=== PATIENT | female | born 1985 | race Caucasian/White ===

== ENCOUNTER 2019-11-03 10:55 | Emergency (ER) | payer OTHER, SELFPAY ==
[2019-11-03 11:00] VITALS: BP 121/84; PULSE 110; RESP 16; TEMP 36.7; O2SAT 97
--- NOTE | 2019-11-03 11:08 | ED.EAR ---
HPI - Ear Problem General Chief complaint: Ear Stated complaint: EAR PRESSURE/POPPING NOISES/HEARING LOSS Time Seen by Provider: 11/03/19 11:00 Source: patient and RN notes reviewed Mode of arrival: ambulatory Limitations: no limitations History of Present Illness HPI Narrative: 34-year-old female presents with concern for bilateral ear pain with clicking and popping. Reports symptoms started as cold symptoms. Cold symptoms have resolved however ear pain remains. Reports history of ear infections. Reports she is trying to conceive and would prefer medications that would be safe for . MD Complaint: ear pain Location: bilateral Related Data Home Medications Medication Instructions Recorded Confirmed escitalopram oxalate [Lexapro] 20 mg PO DAILY 09/09/19 09/09/19 ranitidine HCl 150 mg PO DAILY 09/09/19 09/09/19 Allergies Allergy/AdvReac Type Severity Reaction Status Date / Time sulfamethoxazole Allergy Unknown RED FACE, Verified 09/09/19 17:13 FELT FLUSHED trimethoprim Allergy Unknown RED FACE, Verified 09/09/19 17:13 FELT FLUSHED Review of Systems Review of Systems: Narrative: CONSTITUTIONAL: Denies malaise, chills, sweats, or fever. EYES: Denies visual changes, redness, or discharge. ENT: Denies congestion, sinus pain, or sore throat. Reports rhinorrhea, bilateral ear pain CARDIOVASCULAR: Denies chest pain, palpitations, or edema. RESPIRATORY: Denies cough or dyspnea. SKIN: Denies rash or itching. MUSCULOSKELETAL: Denies myalgia. NEUROLOGIC: Denies headache. All systems reviewed & are unremarkable except as noted in HPI and below PMFSH Comments At time of signature, agree with nursing past medical, surgical, social and family history. There is no relevant family history pertinent to the presenting complaint Exam Narrative: Exam Narrative: GENERAL: Well-appearing, well-nourished, and in no acute distress. HEAD: Normocephalic EYES: PERRLA, conjunctivae clear ENT: Nares clear, turbinates erythematous, clear discharge. Mucous membranes moist. TM erythematous and bulging bilaterally; no tragal tenderness. Oropharynx not erythematous without lesions. Tonsils enlarged and without exudate, no drooling, no hoarseness, no trismus. NECK: Supple. No lymphadenopathy CHEST: Clear to auscultation, breath sounds equal. No wheezing, rhonchi, rales, or stridor. No respiratory distress, speaks in full sentences. HEART: Regular rate and rhythm. No murmur heard. Normal peripheral pulses. SKIN: Warm, dry, no rash. NEURO: Alert and oriented x3. PSYCH: Normal mood and affect Course Course Emergency Course: Patient is aware of diagnosis, understands and agrees to treatment plan. Anticipatory guidance given. Patient agrees to follow-up as directed and is aware of reasons to seek care at the emergency department. Portions of this record may have been created with voice recognition software Vital Signs Vital signs: Vital Signs Temperature 98.1 F 11/03/19 11:00 Pulse Rate 110 H 11/03/19 11:00 Respiratory Rate 16 11/03/19 11:00 Blood Pressure 121/84 11/03/19 11:00 Pulse Oximetry 97 11/03/19 11:00 Temperature 98.1 F 11/03/19 11:00 Pulse Rate 110 H 11/03/19 11:00 Respiratory Rate 16 11/03/19 11:00 Blood Pressure 121/84 11/03/19 11:00 Pulse Oximetry 97 11/03/19 11:00 Reviewed. Medical Decision Making MDM Narrative Medical decision making narrative: Differential diagnosis considered: Strep pharyngitis, allergic rhinitis, upper respiratory tract infection, sinusitis, rhinosinusitis, nasopharyngitis. viral pharyngitis, otitis media, otitis externa, pneumonia, bronchitis, viral cough syndrome, viral syndrome, and influenza. Exam findings show no acute concerns or changes; patient is non-toxic appearing and is in no distress. Patient is appropriate for outpatient treatment and follow-up. Vital Signs Vital Signs: Vital Signs Temperature 98.1 F 11/03/19 11:00 Pulse Rat
== END 2019-11-03 11:19 | disposition home or self-care (01) ==
PROVIDERS: Emergency Provider Nurse Practitioner
DX: H66.006 Acute suppurative otitis media without spontaneous rupture of ear drum, recurrent, bilateral (principal); I45.6 Pre-excitation syndrome; F41.9 Anxiety disorder, unspecified; D75.9 Disease of blood and blood-forming organs, unspecified
CPT/HCPCS: 99213; G0463

== ENCOUNTER 2023-01-25 09:17 | Emergency (ER) | payer OTHER, MEDICAID, SELFPAY ==
[2023-01-25 09:27] VITALS: BP 118/70; PULSE 99; RESP 14; TEMP 36.9; O2SAT 97
--- NOTE | 2023-01-25 10:06 | ED.FEMALEGU ---
HPI - Female Genitourinary General Chief complaint: Urogenital-Female Stated complaint: possible uti Time Seen by Provider: 01/25/23 10:06 Source: patient and RN notes reviewed Mode of arrival: ambulatory Limitations: no limitations History of Present Illness HPI Narrative: 37-year-old female presented for complaint of burning with urination, frequency, urgency for over 5 days. Prior to symptom onset, she completed treatment for yeast infection with [id number] Monistat which resulted from taking amoxicillin for strep. Denies hematuria, abdominal pain, flank pain, nausea, vomiting, diarrhea, fevers or chills. Denies concern for STD, but states she has had several issues over the past few weeks and would like testing. Related Data Allergies Allergy/AdvReac Type Severity Reaction Status Date / Time sulfamethoxazole Allergy Unknown RED FACE, Verified 01/25/23 09:30 FELT FLUSHED trimethoprim Allergy Unknown RED FACE, Verified 01/25/23 09:30 FELT FLUSHED Review of Systems Review of Systems: CONSTITUTIONAL: Denies body aches, fever, chills, or sweats. CARDIOVASCULAR: Denies chest pain, palpitations, or edema. RESPIRATORY: Denies cough or dyspnea. GASTROINTESTINAL: Denies abdominal pain, nausea, vomiting, or diarrhea. GENITOURINARY: Reports dysuria, frequency, urgency, denies hematuria, flank pain SKIN: Denies rash, itching, or wounds. MUSCULOSKELETAL: Denies back pain or myalgia. [facility] Past Medical History Medical History Hx of lower gastrointestinal bleeding 2004- negative colonoscopy Family History Family History Other Depression Substance abuse Social History Social History Social History: Caffeine-coffee/tea/soda Smoking status: Never smoker Alcohol intake: never Substance use: never Lack of Transportation: No Lack of Food: Never True Current Housing: I Have Housing Concerned About Future Housing: No Difficulty Paying Gas/Electric Bills: No Difficulty Paying for Meds: No Currently Unemployed: No Education: Bachelor's Degree Difficulty w/ Childcare or Family Care: No Comments At time of signature, I have reviewed and agree with nursing past medical, surgical, social and family history unless otherwise noted. Please see nursing chart for further information. There is no relevant family history pertinent to the presenting complaint Exam Narrative: GENERAL: Well-appearing and in no acute distress. ENT: Mucous membranes pink and moist. NECK: Normal AROM. Supple. CHEST: No respiratory distress. Clear to auscultation. HEART: Regular rate and rhythm. ABDOMEN: Soft, nontender, nondistended, normal active bowel sounds. No CVA tenderness SKIN: Warm, dry, no rash. NEURO: No focal deficits. Alert and oriented x3. Gait steady. PSYCH: Normal affect. No signs of depression or anxiety. Course Course Emergency Course: Patient is aware of diagnosis, understands and agrees to treatment plan. Anticipatory guidance given. Patient agrees to follow-up as directed and is aware of reasons to seek care at the emergency department. Portions of this record may have been created with voice recognition software Level of Care: Express Care Visit Vital Signs Vital signs: Vital Signs Temperature 98.5 F 01/25/23 09:27 Pulse Rate 99 01/25/23 09:27 Respiratory Rate 14 01/25/23 09:27 Blood Pressure 118/70 01/25/23 09:27 Pulse Oximetry 97 01/25/23 09:27 Oxygen Delivery Room Air 01/25/23 09:27 Temperature 98.5 F 01/25/23 09:27 Pulse Rate 99 01/25/23 09:27 Respiratory Rate 14 01/25/23 09:27 Blood Pressure 118/70 01/25/23 09:27 Pulse Oximetry 97 01/25/23 09:27 Oxygen Delivery Room Air 01/25/23 09:27 Reviewed MDM - Female Genitourinary MDM
== END 2023-01-25 10:23 | disposition home or self-care (01) ==
PROVIDERS: Emergency Provider Nurse Practitioner Family
DX: N39.0 Urinary tract infection, site not specified (principal)
CPT/HCPCS: 81003; 87077; 87086; 87186; 87491; 87591; 87661; 99214; G0463

== ENCOUNTER 2023-08-08 09:55 | Emergency (ER) | payer MEDICAID, SELFPAY ==
[2023-08-08 10:08] VITALS: BP 112/56; PULSE 77; RESP 18; TEMP 36.8; O2SAT 99
--- NOTE | 2023-08-08 10:09 | ED.EAR ---
HPI - Ear Problem General Chief complaint: Ear Stated complaint: ear pain, left Time Seen by Provider: 08/08/23 10:05 Source: patient Mode of arrival: ambulatory Limitations: no limitations History of Present Illness HPI Narrative: Marzena is a 38-year-old female patient presenting to the clinic today with complaints of left ear pain x2 days. She reports her suppression and pain in the left ear. Denies any fever or chills. States she has had some nasal congestion and a cough. Related Data Home Medications Medication Instructions Recorded Confirmed bupropion HCl 450 mg 24 hr tablet, mg PO 08/08/23 extended release escitalopram oxalate 20 mg tablet mg 08/08/23 fluticasone propionate 50 intranasal 08/08/23 mcg/actuation nasal spray,suspension guanfacine 2 mg tablet mg 08/08/23 Allergies Allergy/AdvReac Type Severity Reaction Status Date / Time sulfamethoxazole Allergy Unknown RED FACE, Verified 08/08/23 10:25 FELT FLUSHED trimethoprim Allergy Unknown RED FACE, Verified 08/08/23 10:25 FELT FLUSHED Review of Systems Review of Systems: Pertinent positives per HPI. Patient denies any fever, chills, rash, headache, visual changes, dizziness, shortness of breath, chest pain, palpitations, nausea, vomiting, diarrhea, constipation, abdominal pain, or any urinary issues. [facility] Past Medical History Medical History Hx of lower gastrointestinal bleeding 2004- negative colonoscopy Family History Family History Other Depression Substance abuse Social History Social History Social History: Caffeine-coffee/tea/soda Smoking status: Never smoker Alcohol intake: never Substance use: never Lack of Transportation: No Lack of Food: Never True Current Housing: I Have Housing Concerned About Future Housing: No Difficulty Paying Gas/Electric Bills: No Difficulty Paying for Meds: No Currently Unemployed: No Education: Bachelor's Degree Difficulty w/ Childcare or Family Care: No Living arrangements: with family Comments At the time of my signature, I reviewed and agree with the nursing past medical, surgical, social, and family history. There is no relevant family history pertinent to the patient complaint. Exam Narrative: General: Well-developed, well nourished, in no apparent distress Head: Normocephalic, atraumatic Eyes: Pupils equally round and reactive to light bilaterally, EOM intact, sclera and conjunctive clear, no discharge, lids normal Ears: Right tMs intact and clear, left TM intact, bulging, congested, ear canals clear, no drainage, grossly hearing normal. Nose: Nares patent, clear discharge, no inflammation, no sinus tenderness. Mouth: Oral pharynx without lesions or masses, good dentition, MMM. Neck: Supple, trachea midline, no enlargement of anterior or posterior cervical nodes, no thyroid masses or goiter palpable. Cardio: Regular rate and rhythm, s1 and s2 normal, no murmur appreciated. Resp: Clear to auscultation bilaterally, no rhonchi, rales, wheezing or rubs Course Course Emergency Course: Portions of this record may have been created with voice recognition software. Level of Care: Express Care Visit Vital Signs Vital signs: Vital Signs Temperature 36.8 C 08/08/23 10:08 Pulse Rate 77 08/08/23 10:08 Respiratory Rate 18 08/08/23 10:08 Blood Pressure 112/56 L 08/08/23 10:08 Pulse Oximetry 99 08/08/23 10:08 Oxygen Delivery Room Air 08/08/23 10:08 Temperature 36.8 C 08/08/23 10:08 Pulse Rate 77 08/08/23 10:08 Respiratory Rate 18 08/08/23 10:08 Blood Pressure 112/56 L 08/08/23 10:08 Pulse Oximetry 99 08/08/23 10:08 Oxygen Delivery Room Air 08/08/23 10:08 Vital signs reviewed Medical Decision Making
== END 2023-08-08 10:55 | disposition home or self-care (01) ==
PROVIDERS: Emergency Provider Nurse Practitioner Family; PCP Family Medicine
DX: H69.92 Unspecified Eustachian tube disorder, left ear (principal)
CPT/HCPCS: 99211; G0463

== ENCOUNTER 2023-12-15 09:15 | Outpatient (CLI) | payer BC, SELFPAY | END 2023-12-15 09:16 | PROVIDERS: PCP Family Medicine; Visit Provider Family Medicine | DX: M25.561 Pain in right knee (principal); M25.562 Pain in left knee | CPT/HCPCS: 73562 ==